=== PATIENT | female | born 1980 | race Caucasian/White ===

== ENCOUNTER 2017-10-14 16:05 | Emergency (ER) | payer MEDICARE, MEDICAID ==
[~2017-10-14] VITALS: Ht 172.7 cm; Wt 122.2 kg
[~2017-10-14 16:05] MED LIST: ALBU8.5H8 IH; ALPR0.5T8 PO; BUDE10.2 INH; CALC500T43 PO; CHOL50004 PO; CYAN100097 PO; CYCL-1 PO; DICL100G15 TOP; ESOM40CA PO; LEVO112T39 PO; OMEG500C PO; OXYC5CAP19 PO; PREN1TAB79 PO; SUMA50TA PO; THI100T PO
[2017-10-14] MEDS ORDERED: ondansetron 4mg rapidly disintigrating tab PO ONE (17:20)
[2017-10-14 17:42] LABS: BASOPHILS # (AUTO) 0.1 X10'3 (0-0.2); EOSINOPHILS # (AUTO) 0.6 X10'3 (0-0.9); EOSINOPHILS % (AUTO) 8.5 % (0-6); HEMATOCRIT 40.7 % (35.0-45.0); HEMOGLOBIN 13.8 g/dl (12.0-16.0); LYMPHOCYTES % (AUTO) 42.4 % (21-51); MEAN CORPUSCULAR HEMOGLOBIN 32.1 PG (27.0-31.0); MEAN CORPUSCULAR HGB CONC 33.8 % (33.0-36.5); MEAN CORPUSCULAR VOLUME 94.8 FL (78-98); MEAN PLATELET VOLUME 7.3 FL (7.4-10.4); MONOCYTES # (AUTO) 0.4 X10'3 (0-0.9); MONOCYTES % (AUTO) 5.4 % (2-12); NEUTROPHILS % (AUTO) 42.7 % (42-75); PLATELET COUNT 260 X10'3 (140-440); RED CELL DISTRIBUTION WIDTH 14.4 % (11.5-14.5)
[2017-10-14 18:29] VITALS: BP 119/85
== END 2017-10-14 18:30 | disposition home or self-care (01) ==
LOC: ER 16:06
DX: R10.33 Periumbilical pain (principal); G89.29 Other chronic pain; J45.909 Unspecified asthma, uncomplicated; E03.9 Hypothyroidism, unspecified; F12.10 Cannabis abuse, uncomplicated; Z91.018 Allergy to other foods; Z90.710 Acquired absence of both cervix and uterus
CPT/HCPCS: 36415; 85025; 99283; 99285

== ENCOUNTER 2017-12-05 22:09 | Emergency (ER) | payer MEDICARE, MEDICAID ==
[~2017-12-05] VITALS: Ht 172.7 cm; Wt 59.1 kg
[2017-12-06] MEDS ORDERED: diazepam 5mg tablet PO ONE (00:20)
[2017-12-06] MEDS ORDERED: oxyCODONE/APAP 10/325mg tablet PO ONE (00:20)
[2017-12-06] MEDS ORDERED: ibuprofen tablet 400 MG TABLET PO ONE (00:20)
[2017-12-06] MEDS ORDERED: CYCL10TA26 PO (01:21)
[2017-12-06 01:31] VITALS: BP 135/85
== END 2017-12-06 01:33 | disposition home or self-care (01) ==
LOC: ER 22:09
DX: S39.012A Strain of muscle, fascia and tendon of lower back, initial encounter (principal); E03.9 Hypothyroidism, unspecified; G89.29 Other chronic pain; J45.909 Unspecified asthma, uncomplicated; Z90.710 Acquired absence of both cervix and uterus; F12.10 Cannabis abuse, uncomplicated; Z91.018 Allergy to other foods; Z79.899 Other long term (current) drug therapy; W18.30XA Fall on same level, unspecified, initial encounter; Y93.89 Activity, other specified; Y92.89 Other specified places as the place of occurrence of the external cause; Y99.8 Other external cause status
CPT/HCPCS: 72100; 99284

== ENCOUNTER 2018-03-06 23:59 | Emergency (ER) | payer MEDICARE, MEDICAID ==
[~2018-03-06] VITALS: Ht 175.3 cm; Wt 58.0 kg
[~2018-03-06 23:59] MED LIST changes: +CYCL10TA26 PO
[2018-03-07 00:08] VITALS: BP 140/102
[2018-03-07] MEDS ORDERED: ketorolac trometh inj. 60 MG/2 ML VIAL IM ONE (00:50)
[2018-03-07] MEDS ORDERED: ondansetron/PF 4mg/2ml inj IM ONE (00:50)
[2018-03-07] MEDS ORDERED: morphine 4 MG/ML inj SYRINge IM ONE (00:50)
== END 2018-03-07 01:50 | disposition home or self-care (01) ==
LOC: ER 23:59
DX: M62.830 Muscle spasm of back (principal); G43.909 Migraine, unspecified, not intractable, without status migrainosus; J45.909 Unspecified asthma, uncomplicated; E03.9 Hypothyroidism, unspecified; G89.29 Other chronic pain; F12.90 Cannabis use, unspecified, uncomplicated; Z90.710 Acquired absence of both cervix and uterus; Z98.890 Other specified postprocedural states; Z91.018 Allergy to other foods; Z88.8 Allergy status to other drugs, medicaments and biological substances; Z79.899 Other long term (current) drug therapy
CPT/HCPCS: 96372; 99284; J1885; J2270; J2405